=== PATIENT | female | born 1960 | race Caucasian/White ===

== ENCOUNTER 2017-09-09 12:51 | Observation (INO) | payer OTHER, MEDICARE ==
[2017-09-09 13:55] LABS: #Lymphocytes 0.5 thou/uL (1.20-3.40); #Monocytes 0.1 thou/uL (0.11-0.59); #Neutrophils 3.5 thou/uL (1.40-6.50); %Eosinophils 0.2 % (0.0-10.0); %Lymphocytes 11.5 % (21.0-51.0); %Monocytes 1.6 % (0.0-10.0); %Neutrophils 86.8 % (42.0-75.0); Mean Corpuscular HGB CONC 33.6 g/dL (32.0-36.0); Mean Corpuscular Hemoglobin 31.5 pg (27.0-31.0); Mean Corpuscular Volume 93.6 fl (81.0-99.0); Mean Platelet Volume 7.9 fL (7.4-10.4); Platelet Count 179 thou/uL (130-400); RBC Distribution Width 11.9 % (11.5-14.5); Red Blood Cell (RBC) Count 4.12 mill/uL (4.20-5.40)
[2017-09-09 14:00] LABS: INR-International Normal Ratio 1.1; PTT 29.7 SEC (22.9-36.1)
--- NOTE | 2017-09-09 14:14 | CT ---
HEAD CT WITHOUT CONTRAST: Date: 09-09-17 Comparison: 10-28-14 History: Dehydration, nausea, and syncope. Technique: Serial axial CT imaging at 5 mm intervals from vertex through skull base without contrast. FINDINGS: Imaged paranasal sinuses and mastoid air cells are well aerated. There is no displaced calvarial frac ture, intracranial hemorrhage, midline shift or mass effect. There is atherosclerotic calcification o f the cavernous carotid arteries. IMPRESSION: No acute findings. POS: [facility]
[2017-09-09 14:17] LABS: ALT (SGPT) 39 U/L (8-55); AST (SGOT) 40 U/L (5-34); Albumin 4.3 g/dL (3.5-5.0); Alkaline Phosphatase 72 U/L (40-150); Anion Gap 9 mmol/L (10-20); BUN (Urea Nitrogen) 9 mg/dL (9.8-20.1); Bilirubin, Total 0.3 mg/dL (0.2-1.2); CRP (Inflammatory) Less than 0.50 mg/dL (= or < 0.5); Calc. Creatinine Clearance 0 mL/min (70-130); Calcium 9.3 mg/dL (7.8-10.44); Carbon Dioxide 31 mmol/L (22-29); Chloride 103 mmol/L (98-107); Estimated GFR-MDRD 78; Globulin 2.9 g/dL (2.4-3.5); Glucose 161 mg/dL (70-105); Potassium 4.3 mmol/L (3.5-5.1); Protein, Total 7.2 g/dL (6.0-8.3); Sodium 139 mmol/L (136-145)
[2017-09-09 14:23] LABS: Troponin I Less than 0.010 ng/mL (< 0.028)
[2017-09-09] MEDS ORDERED: Loratadine 10 MG TAB PO PRN (15:13)
[2017-09-09] MEDS ORDERED: Nitroglycerin 0.4 MG TAB (25 Tab Bottle) SL PRN (15:13)
[2017-09-09] MEDS ORDERED: hydrALAZINE 20 MG/ML VIAL SLOW IVP PRN (15:13)
[2017-09-09] MEDS ORDERED: Ondansetron HCl/PF 4 MG/2 ML Vial IVP PRN (15:13)
[2017-09-09] MEDS ORDERED: cloNIDine 0.1 MG TAB PO PRN (15:13)
[2017-09-09] MEDS ORDERED: Diabetic Tussin 200 MG/10 ML UDCUP PO PRN (15:13)
[2017-09-09] MEDS ORDERED: Calcium Carbonate 500 MG ChewTAB PO PRN (15:13)
[2017-09-09] MEDS ORDERED: Bisacodyl 5 MG TAB PO PRN ×2 (15:13)
[2017-09-09] MEDS ORDERED: Mag-Al 1200 mg/1200 mg/30 ML UDCUP PO PRN (15:13)
[2017-09-09] MEDS ORDERED: Acetaminophen 325 MG TAB PO PRN (15:13)
[2017-09-09] MEDS ORDERED: Senokot 8.6 MG TAB PO PRN ×2 (15:13)
[2017-09-09] MEDS ORDERED: Benzonatate 100 MG CAP PO PRN (15:13)
[2017-09-09] MEDS ORDERED: Iopamidol 370 76% 50 ML VIAL FS ONE (15:14)
[2017-09-09] MEDS ORDERED: Iopamidol 370 76% 100 ML VIAL ONE (15:14)
[2017-09-09] MEDS ORDERED: Ketorolac Tromethamine 30 MG/ML VIAL ONE (15:57)
[2017-09-09] MEDS ORDERED: Promethazine HCl 25 MG/ML VIAL ONE (16:04)
[2017-09-09] MEDS ORDERED: Acetaminophen 500 MG TAB ONE (17:10)
[2017-09-09 17:12] LABS: Troponin I Less than 0.010 ng/mL (< 0.028)
[2017-09-09 18:31] LABS: Bilirubin Negative (Negative); Blood, Urine Small (Negative); Clarity CLEAR (Clear); Glucose, Urine (Dipstick) Negative (Negative); Leukocyte Negative (Negative); Nitrite Negative (Negative); Protein, Urine (Dipstick) Negative (Neg-Trace); Specific Gravity, Urine 1.007 (1.002-1.036); Urobilinogen 0.2 mg/dL (0.2-1.0); pH, Urine 7.5 (5.0-9.0)
[2017-09-09 18:33] LABS: Bacteria/HPF None Seen HPF (None Seen); Hyaline Casts/LPF 0-3 HYALINE CAST LPF (0-3 Hyaline); Squamous Epithelial None Seen HPF (0-3); WBC/HPF None Seen HPF (0-3)
[2017-09-09] MEDS: Dextrose 5 %-0.45 % NaCl 1,000 ML IV SCH (20:09)
--- NOTE | 2017-09-09 20:13 | CT ---
CT OF THE CHEST WITH CONTRAST CT OF THE ABDOMEN AND PELVIS WITH CONTRAST 09/09/17 COMPARISON: CT of the abdomen/pelvis 03/03/15. HISTORY: Abdominal pain and weight loss. TECHNIQUE: 1. Multiple contiguous axial images were obtained in a CT of the chest with contrast. Coronal re formats were performed. 2. Multiple contiguous axial images were obtained in a CT of the abdomen and pelvis with contras t. PO contrast was administered. Coronal reformats were performed. FINDINGS: CT CHEST: The heart is normal in size without focal cardiac abnormality. No hilar or mediastinal lymphadenopath y are seen. No focal infiltrates are seen in the lungs. No suspicious pulmonary nodules are seen. No pneumothorax or pleural effusion are seen. Hardware is seen in the cervical spine. The bones of the thorax show no acute abnormality. The chest wall soft tissues are unremarkable. CT ABDOMEN/PELVIS: The gallbladder has been removed. There is mild enlargement of the common bile duct and central intra hepatic biliary tree which is likely a reservoir effect from prior cholecystectomy. This is stable co mpared to the prior examination. No focal liver lesion is seen. The kidneys, adrenal glands, spleen, and pancreas are unremarkable. No free air, free fluid, or stranding changes are seen in the abdomen or pelvis. The uterus is not seen as the patient is likely status post hysterectomy. No focal abnormality of the large or small bowel are seen. No abdominal or pelvic lymphadenopathy are seen. Postsurgical changes are seen in the stomach. IMPRESSION: 1. No evidence of acute intrathoracic abnormality. 2. No evidence of acute intra-abdominal/pelvic abnormality. POS: [facility]
[2017-09-09 20:44] LABS: Troponin I Less than 0.010 ng/mL (< 0.028)
[2017-09-09] MEDS ORDERED: Ketorolac Tromethamine 10 MG TAB PO PRN (21:06)
[2017-09-09 21:18] LABS: Folate (Folic Acid) 13.4 ng/mL (7.0-31.4)
[2017-09-09] MEDS: traMADol HCl 50 MG TAB PO PRN (21:41)
[2017-09-09] MEDS: Diazepam 5 MG TAB PO PRN (21:42)
[2017-09-09] MEDS ORDERED: Potassium Chloride 8 MEQ TAB PO SCH (21:45)
[2017-09-10] MEDS: Levothyroxine Sodium 75 MCG TAB PO SCH (05:21)
[2017-09-10 05:53] LABS: #Lymphocytes 2.5 thou/uL (1.20-3.40); #Monocytes 0.6 thou/uL (0.11-0.59); #Neutrophils 4.7 thou/uL (1.40-6.50); %Basophils 0.3 % (0.0-1.0); %Eosinophils 0.6 % (0.0-10.0); %Lymphocytes 31.8 % (21.0-51.0); %Monocytes 7.6 % (0.0-10.0); %Neutrophils 59.7 % (42.0-75.0); Hemoglobin 11.9 g/dL (12.0-16.0); Mean Corpuscular HGB CONC 33.3 g/dL (32.0-36.0); Mean Corpuscular Hemoglobin 31.2 pg (27.0-31.0); Mean Corpuscular Volume 93.7 fl (81.0-99.0); Mean Platelet Volume 7.9 fL (7.4-10.4); Platelet Count 174 thou/uL (130-400); Red Blood Cell (RBC) Count 3.81 mill/uL (4.20-5.40); White Blood Cell (WBC) Count 7.9 thou/uL (4.8-10.8)
[2017-09-10 06:13] LABS: Anion Gap 7 mmol/L (10-20); BUN (Urea Nitrogen) 14 mg/dL (9.8-20.1); Calc. Creatinine Clearance 91 mL/min (70-130); Calcium 8.9 mg/dL (7.8-10.44); Carbon Dioxide 29 mmol/L (22-29); Chloride 105 mmol/L (98-107); Estimated GFR-MDRD Greater than 90; Glucose 90 mg/dL (70-105); Sodium 137 mmol/L (136-145)
[2017-09-10] MEDS ORDERED: Dicyclomine 10 MG CAP PO PRN (08:39)
[2017-09-10] MEDS ORDERED: cycloSPORINE 0.05% Ophthalmic Droperette EA EYE PRN ×2 (08:39→08:58)
[2017-09-10] MEDS ORDERED: RIZATRIPTAN BENZOATE 5 MG PO PRN (08:39)
[2017-09-10] MEDS ORDERED: Non-Formulary Item 1 EACH (Eszopiclone [Lunesta] 3 MG) PO PRN (08:39)
[2017-09-10] MEDS ORDERED: Vitami E (Dl,Tocopheryl Acet) 400 UNITS CAP PO PRN (08:39)
[2017-09-10] MEDS ORDERED: SUMAtriptan Succinate 50 MG TAB PO PRN (08:58)
[2017-09-10] MEDS ORDERED: FLU VACC QS2017-18 36 mo. & older 0.5 ML SYRINGE IM ONE (09:00)
[2017-09-10] MEDS ORDERED: Non-Formulary Item 1 EACH (Biotin [Biotin] 1 MG) PO SCH (09:00)
[2017-09-10] MEDS ORDERED: Non-Formulary Item 1 EACH (Cholecalciferol (Vitamin D3) [Vitamin D3] 5,000 UNIT) PO SCH (09:00)
[2017-09-10] MEDS ORDERED: Non-Formulary Item 1 EACH (Multivitamin [Multivitamins] 1 CAP) PO SCH (09:00)
[2017-09-10] MEDS ORDERED: MOMETASONE FUROATE EA NARE SCH (09:00)
[2017-09-10] MEDS ORDERED: POTASSIUM GLUCONATE PO SCH (09:00)
--- NOTE | 2017-09-10 09:56 | HP ---
DATE OF ADMISSION: 09/09/2017 PRIMARY CARE PHYSICIAN: Dr. Nu Canseco. CHIEF COMPLAINT: Weight loss, abdominal pain, generalized weakness, dehydration, poor oral intake, d iarrhea, headache seeing lights, urinary frequency, and dysuria. HISTORY OF PRESENTING ILLNESS: Ms. Elias is a 57-year-old female with past medical history of Sjo gren's syndrome, history of Clostridium difficile colitis, panic disorder, hypothyroidism, history of bariatric Edwige-en-Y surgery, fibromyalgia, chronic fatigue, who presented to the emergency room at t he instruction of her ENT physician, Dr. Bennett. History is mainly obtained by the patient herself. Electronic medical records have been reviewed. She was last admitted to our facility last year when she was diagnosed and treated for C. diff. Ms. 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 She reports that she feels all of her symptoms as mentioned in the chief complaint: have been worsened since she was taking Plaquenil. She stopped taking this about 2 weeks ago, but did not have much improvement in her symptoms. Her symptoms are rather nonspecific and generalized including generalized weakness is being the main complaint. She also reports weight loss of over 30 pounds over the course of last 2 or 3 months. She describes dysphagia, odynophagia, abdominal pain, nausea, vomiting, diarrhea, dys uria, frequency as well as headache and multitude headache, dizziness and seeing some sort of lights. She has sought medical care with Neurology, Dr. Maynard as an outpatient and today she was in the [facility] clinic to see Dr. Bennett, who thought that she would benefit from inpatient evaluation for these c omplex combination of symptoms. Upon presentation to the ER, she is hemodynamically stable. Her workup done in the emergency room in cluding a CT scan of the head as well as laboratory examination, chest x-ray, and EKG are all unremar kable. She is now being admitted as observation status for further evaluation. She has seen Dr. Chong in the past and has EGD, colonoscopy almost a decade ago after her surgery. It is important to note that the patient takes a multitude of [id number] supplements including something called SeroVital, which is growth hormone as well as something called , among others. PAST MEDICAL HISTORY: As outlined in the HPI. PAST SURGICAL HISTORY: 1. Edwige-en-Y gastrectomy for bariatric surgery. 2. EGD and colonoscopy. 3. Cholecystectomy. 4. Tummy tuck. 5. Appendectomy. 6. Neck surgery. 7. Hysterectomy. 8. Breast biopsy. 9. Sinus surgery. 10. Right-hand surgery. 11. Left-shoulder surgery. FAMILY HISTORY: Significant for throat cancer, renal cancer in her father, hypertension, CVA in her mother, breast cancer in sister. SOCIAL HISTORY: She is with 3 children. No history of drug, tobacco, or alcohol abuse. PSYCHIATRIC HISTORY: Anxiety and depression. ALLERGIES: Include CODEINE, DEMEROL, LATEX, MEPERIDINE, MORPHINE, PLASTIC TAPE, and SULFONAMIDE. CURRENT MEDICATIONS: Synthroid 75 mcg daily, meclizine 25 mg as needed, lidocaine viscous as needed, Evoxac 30 mg t.i.d., diazepam 2.5 mg as needed, azelastine nasal spray. REVIEW OF SYSTEMS: The patient has multiple positive review of system as mentioned above. PHYSICAL EXAMINATION: VITAL SIGNS: Blood pressure 162/101, pulse of 79, respirations 18, saturating 100% on room air, temp erature 97.6, weight 57 kilograms. GENERAL: No acute distress, awake, alert, and oriented x3. She, however, looks very pale and tired. HEENT: Mucous membrane is somewhat dry. No oropharyngeal exudate or erythema. Head is normocephali c, atraumatic. Pupils equal, reactive to light and accommodation. Extraocular movements are intact. She does appear to have some muscle wasting. NECK: Supple without any lymphadenopathy, JVD or bruit. CHEST: Clear to auscultation without any wheezing, rales or rhonchi. CARDIOVASCULAR: Rate and rhythm is regular without any murmur, rubs or gallops. ABDOMEN: Soft, nontender, nondistended, positive bowel sounds. EXTREMITIES: Free of any cyanosis, clubbing, or edema. NEUROLOGIC: Nonfocal. SKIN: Free of any rashes or bruises. I feel warm and dry to touch. PSYCHIATRIC: Flat affect. LABORATORY DATA: CBC is unremarkable. Hemoglobin 13, WBC is 4, neutrophils 86%, platelet count 179. Differential within normal limit. PT, PTT, INR normal. Serum chemistry shows bicarbonate 31, BUN low at 9, creatinine 0.76. Her total serum protein is 7.2, albumin 4.3. TSH normal. Cardiac enzyme s normal. Lipase normal. Lactic acid normal. Blood sugar 161. Urine analysis shows trace blood. CT scan of the brain by my review has no evidence to suggest any acute abnormality. A 12-lead EKG is reviewed by myself and has normal sinus rhythm without any acute ST or T-wave change s. IMPRESSION AND PLAN: 1. Generalized weakness, weight loss and abdominal pain. The patient's symptoms span multiple organ systems and it is unclear what is causing most of her symptoms. At this time, most of her symptoms; however, seem to be gastrointestinal. Her lab work is within normal limits. Her vital signs are no rmal. We will admit her under observation status and will get a CT scan of the chest, abdomen, and p shiloh to rule out any malignancies in light of significant weight loss. We will also request consult ation with Gastroenterology in the morning. Had high protein diet and consulted dietitian. Check B1 2, folic acid, iron, as well as thiamine levels. Continue D5 half normal saline for mild dehydration at this time. 2. Headache and dizziness. We will consult Dr. Maynard who has seen the patient in the outpatient s etting. 3. History of Sjogren's disease. Continue her home medication of Evoxac. 4. Hypothyroidism. We will continue her Synthroid 75 mcg daily. TSH checked and was within normal limits. 5. Anxiety and depression. Continue diazepam as needed. 6. Code status: FULL CODE. 7. Deep venous thrombosis and gastrointestinal prophylaxis. DISPOSITION: Ms. Elias is currently being admitted to the hospital for problems as mentioned abov e. She is hemodynamically stable. Estimated length of stay is less than two midnights at this time. Further management will depend upon her clinical course.
[2017-09-10] MEDS ORDERED: Zolpidem Tartrate 5 MG TAB PO PRN (10:11)
[2017-09-10] MEDS: Ondansetron HCl/PF 4 MG/2 ML Vial IVP PRN (10:20)
[2017-09-10] MEDS: Ferrous Sulfate 325 MG TAB PO SCH (10:24)
[2017-09-10] MEDS: Potassium Chloride 8 MEQ TAB PO SCH (10:24)
[2017-09-10] MEDS: Multivit, Therapeutic 1 TAB PO SCH (10:24)
[2017-09-10] MEDS: Fluticasone Propionate Nasal Spray 16 gm Bottle NASAL SCH (10:25)
[2017-09-10] MEDS: Dextrose 5 %-0.45 % NaCl 1,000 ML IV SCH ×2 (10:28→22:51)
[2017-09-10] MEDS: Enoxaparin Sodium 40 MG/0.4 ML SYRINGE SC SCH (10:28)
[2017-09-10] MEDS ORDERED: Diazepam 5 MG TAB PO PRN (13:13)
[2017-09-10 14:54] VITALS: BMI 21.2
--- NOTE | 2017-09-10 15:59 | CON ---
DATE OF CONSULTATION: 09/10/2017 GI INPATIENT CONSULTATION NOTE REQUESTING PHYSICIAN: Dr. Garcia. REASON FOR CONSULTATION: Nausea and abdominal pain. HISTORY OF PRESENT ILLNESS: Carol Elias is a 57-year-old woman who has been previously seen by my GI colleague, Dr. Kushal Chong. She has a significant past abdominal surgical history inclu ding Edwige-en-Y gastric bypass in 2002, cholecystectomy, appendectomy, hysterectomy, and also abdomino plasty. Of note, she has a history significant for C. difficile infection back in 2017. She carries diagnoses of fibromyalgia and chronic fatigue. She takes a lot of supplements. She is also being t reated for Sjogren syndrome evidently with associated arthritis. The patient relates that a couple o f months ago she was started on Plaquenil. Several weeks later, which was about 1 month ago, she sta rted having severe stabbing pain in the epigastrium. This waxes and wanes, but is reliably triggered by any food or drink pretty much immediately after eating. Because of this, her oral intake has dec lined and she reports of about a 30 pound weight loss over the past 1-2 months. There has been const ant nausea and she has had several episodes of nonbloody emesis. Her bowel movements have not really changed through this time. Stools are chronically loose, but just once or twice per day with no ble eding noted. She does report some dysphagia. She says this has been going on for a long time and is nonprogressive. She will occasionally feel as if solid food hangs up at the base of the neck and sh e will just have to wait for that sensation to resolve. She has not had any recent antibiotics and s he denies nonsteroidal anti-inflammatory drug use. It does not appear she is on any chronic acid sup pression. Upon presentation, she does have a mild anemia of hemoglobin 11.9, but otherwise labs are essentially unremarkable including LFTs, lipase, troponins and TSH. CT of the chest, abdomen, and pe lvis really showed only postoperative changes, but no acute processes. REVIEW OF SYSTEMS: Full review of systems including constitutional, head, eyes, ears, nose, throat, GI, , cardiovascular, respiratory, musculoskeletal, and neurologic systems is negative except as no alex in the HPI. PAST MEDICAL HISTORY: Appendectomy, cholecystectomy, Edwige-en-Y gastric bypass in 2002, hysterectomy, fibromyalgia, chronic fatigue, clostridium difficile infection in 2006, and Sjogren's syndrome. PAST SURGICAL HISTORY: Sinus surgery, right hand surgery, left shoulder surgery, abdominoplasty, hardy ic disorder, hypothyroidism. FAMILY HISTORY: Significant for throat cancer, renal cancer in her father, breast cancer in a sister . SOCIAL HISTORY: She is with 3 children. No smoking, alcohol, or drug use. ALLERGIES: CODEINE, DEMEROL, LATEX, MORPHINE, PLASTIC TAPE, and SULFONAMIDES. OUTPATIENT MEDICATIONS: Levothyroxine, biotin, potassium gluconate, Nexium 20 mg daily, dicyclomine p.r.n., Valium, vitamin D3, ferrous sulfate 325 mg daily, Lunesta, estradiol, multivitamin daily, Armando onex, Toradol, Maxalt, Restasis, and tramadol. PHYSICAL EXAMINATION: VITAL SIGNS: Temperature 98.4, pulse 80, blood pressure 132/68, 96% oxygen saturation on room air. GENERAL: A 57-year-old woman sitting up in bed comfortably in no acute distress. MENTAL: She is alert and oriented. She can give a detailed coherent history. Her affect is depress ed. SKIN: No jaundice, no rash visible or palpable. EYES: No scleral icterus. Extraocular movements intact. ENT: Mucous membranes moist, no oral lesions. LYMPH: No submandibular or supraclavicular lymphadenopathy. THYROID: Nontender to palpation. HEART: Regular rate and rhythm. LUNGS: Clear to auscultation bilaterally. ABDOMEN: Bowel sounds present, soft, tender to palpation in the epigastrium, but no guarding, reboun d tenderness. No masses or organomegaly appreciated. EXTREMITIES: No peripheral edema. VESSELS: Radial pulses 2+ bilaterally. NEUROLOGICAL: Cranial nerves II-XII intact bilaterally. No focal deficits. LABORATORY DATA: WBC 7.9, hemoglobin 11.9, platelets 174, MCV 93.7, BUN 14, creatinine 0.63, INR 1.1 , lipase 38, TSH 0.64, ESR 11. Troponin negative. LFTs all normal with total bilirubin 0.3, alkalin e phosphatase 72, AST 40, ALT 39, albumin 4.3. IMAGING STUDIES: CT of the head showed no acute processes. CT of the chest, abdomen, and pelvis ly wed postoperative changes of cholecystectomy, hysterectomy, and gastric surgery, but no acute process es, no bowel abnormalities. ASSESSMENT AND PLAN: 1. Epigastric pain, severe, postprandial. 2. Nausea. 3. Dysphagia, chronic. 4. History of Edwige-en-Y gastric bypass. 5. Abnormal weight loss, 30 pounds in the past couple of months. It has been about 7 years since e patient's last upper endoscopy, it was normal at that time. It has been about 10 years since her l ast colonoscopy which was normal in 2007. We discussed multiple potential etiologies for her symptom s, but also her lab and imaging workup so far has been reassuringly negative. At this point, further investigation is warranted with esophagogastroduodenoscopy and colonoscopy. Consider peptic ulcer d isease or anastomotic ulcer, obviously need to rule out occult malignancy. We will plan for esophago gastroduodenoscopy and colonoscopy tomorrow after bowel prep this evening. The patient understands a nd desires to proceed. Thank you for the consultation. Please call with questions or concerns.
[2017-09-10] MEDS ORDERED: GoLYTELY 4,000 ml Bottle PO SCH (16:00)
[2017-09-10] MEDS ORDERED: Diazepam 5 MG TAB PO SCH (18:45)
--- NOTE | 2017-09-10 20:14 | CON ---
DATE OF CONSULTATION: 09/10/2017 REFERRING PROVIDER: Dr. Jackie Garcia. REASON FOR CONSULTATION: Intractable headaches. HISTORY OF PRESENT ILLNESS: Ms. Elias is a pleasant 57-year-old female who has been con sulted for evaluation of intractable headaches. Patient reports that she has history of migraines fo r several years. She has seen Dr. Cash Maynard as an outpatient for her migraines. She states that over the past 2 weeks, she has been having headaches on a daily basis. Headaches are located in the cap-like distribution and tends to radiate to the front into both eyes. These headaches are sharp in quality. They are on average at 3-4/10 in intensity. They tend to go up to 5-6/10 in intensity fito t is when she usually takes her tramadol to get rid of the headache. This may decrease in intensity down to 2 or 3, but it never completely goes away. These headaches are on daily basis. She has a bl urry vision along with the shadows and floaters, which are blue in nature on the periphery of the lef t eye. She also has nausea, dizziness with headaches. She presented to the hospital with a complain t of generalized weakness of the stomach, poor oral intake and diarrhea. She has tried Topamax, Depa kote, propranolol, amitriptyline, and other preventive therapies for migraines in the past without an y relief of her headaches. She also could not tolerate them and says she had discontinued all of the m. She states that she was supposed to undergo Botox with Dr. Maynard; however, she never followed u p. PAST MEDICAL HISTORY: Significant for Sjogren syndrome, C. diff colitis, panic disorder, hypothyroid ism, fibromyalgia, chronic fatigue syndrome. PAST SURGICAL HISTORY: Significant for bariatric surgery, EGD, and colonoscopy, cholecystectomy, becky endectomy, neck surgery, hysterectomy, breast biopsy, sinus surgery, right-hand surgery, and left ly ulder surgery. SOCIAL HISTORY: She is and has 3 children. She denies smoking, alcohol use, or illicit drug use. FAMILY HISTORY: Significant for throat cancer, renal cancer in her father, hypertension, stroke in h er mother, and breast cancer in her sister. CURRENT MEDICATIONS: Please review MAR. ALLERGIES: Include CODEINE, DEMEROL, LATEX, MEPERIDINE, MORPHINE, PLASTIC TAPE, and SULFONAMIDE. PSYCHIATRIC HISTORY: Includes anxiety and depression. REVIEW OF SYSTEMS: As mentioned in the HPI, is negative. PHYSICAL EXAMINATION: VITAL SIGNS: Blood pressure of 114/66, pulse of 75, temperature of 98.2, respirations of 18, O2 sats of 96% on room air. GENERAL: Well-developed, well-nourished female in no apparent distress. RESPIRATORY: Clear to auscultation bilaterally. CARDIOVASCULAR: Regular rate and rhythm. NEUROLOGICAL: Mental status: Patient is awake, alert, oriented x3. Speech and language: Fluent sp eech. Cranial nerves: Pupils are 3 mm and reactive. Visual sánchez are intact. Extraocular muscles are intact. No nystagmus is noted. Face is symmetric. Tongue and uvula are midline. Motor exam s howed normal tone and bulk with 5/5 strength in both upper and lower extremities. Sensory: Sensatio n is intact and symmetric. Deep tendon reflexes 2+ of flexion with both upper and lower extremities. Babinski: Plantar responses flexion bilaterally. Coordination intact to [id number] and fi nger tapping bilaterally. LABORATORY DATA: Reviewed, which included CBC, CMP, TSH, B12, folate, urinalysis, which is significa nt for hemoglobin 11.9, hematocrit of 35.6. AST of 40, otherwise unremarkable. IMAGING STUDIES: CT head without contrast was reviewed, which showed no acute intracranial abnormali ty. IMPRESSION: Intractable migraines, stress, and anxiety. Ms. Elias is a pleasant 57-year-old Cauc female presented with increasing episodes of headaches. Based on the description, these are li bridgett intractable migraines, had long discussion with the patient and explained that since she has bee n having headaches on a daily basis, she needs to be started on preventive therapy. She has tried mu ltiple preventive therapies in the past without any relief in significant noticeable side effects. A t this time, I will recommend continuing current medical management. She will follow up with Dr. Mariola jerez as outpatient and possibly enroll in Botox therapy. We discussed about starting a preventive th erapy; however, she is reluctant to start as she has tried them in the past and she is worried about the side effects. There is no further neurological workup needed from my standpoint. Thank you for consultation.
--- NOTE | 2017-09-10 21:56 | PDOC.PN ---
- Subjective Encounter Start Date: 09/10/17 Encounter Start Time: 21:55 Subjective: FEELS BETTER BUT VERY EMOTIONAL.CRYING ON AND OFF - Objective MAR Reviewed: Yes Vital Signs & Weight: Vital Signs (12 hours) Temp Pulse Resp BP Pulse Ox 09/10/17 18:33 97.4 F L 70 16 135/75 99 09/10/17 15:35 98.2 F 75 18 114/66 96 09/10/17 12:06 98.4 F 80 16 132/68 96 Weight Admit Weight 134 lb Weight 131 lb 11.2 oz I&O: 09/09/17 09/10/17 09/11/17 06:59 06:59 06:59 Intake Total 1892 1650 Output Total 3050 2700 Balance -1158 -1050 Result Diagrams: 09/10/17 05:28 09/10/17 05:28 Additional Labs: Microbiology 03/02/15 12:16 Urine voided Urine Culture - Preliminary NO GROWTH AT 24 HOURS 03/02/15 10:02 Venous blood - Right Hand Blood Culture - Preliminary Specimen has been received and culture in progress. No Growth to date. 03/02/15 09:59 Venous blood - Right Arm Blood Culture - Preliminary Specimen has been received and culture in progress. No Growth to date. Phys Exam - Physical Examination tearful HEENT: PERRLA, moist MMs, sclera anicteric, oral pharynx no lesions Neck: no nodes, no JVD, supple, full ROM Respiratory: no wheezing, no rales, no rhonchi Cardiovascular: RRR, no significant murmur Gastrointestinal: soft, non-tender, no distention, positive bowel sounds Musculoskeletal: no edema, pulses present Neurological: non-focal, normal sensation, moves all 4 limbs Psychiatric: normal affect, A&O x 3 Skin: no rash Dx/Plan (1) General weakness Code(s): R53.1 - WEAKNESS Status: Acute (2) Abdominal pain Code(s): R10.9 - UNSPECIFIED ABDOMINAL PAIN Status: Acute (3) Anxiety Code(s): F41.9 - ANXIETY DISORDER, UNSPECIFIED Status: Acute (4) Sjogrens syndrome Code(s): M35.00 - SICCA SYNDROME, UNSPECIFIED Status: Acute (5) Protein calorie malnutrition Code(s): E46 - UNSPECIFIED PROTEIN-CALORIE MALNUTRITION Status: Chronic Qualifiers: Protein-calorie malnutrition severity: severe Qualified Code(s): E43 - Unspecified severe protein-calorie malnutrition - Plan DVT proph w/SCDs work up negative so far.sina psychosomatic in nature.discussed w pt & jim -: CT chest /A/P without any acute changes.awaiting thiamine levels -: cont NS.add OT,PT.HH -: Appreciate GI/Neurology input.EGD/Colonoscopy in am -: HD stable.increase prn valium per pt reuqest for ac worsening of anxiety * . Review of Systems - Review of Systems Constitutional: weakness, malaise. negative: fever, chills, sweats, other Cardiovascular: negative: chest pain, palpitations, orthopnea, paroxysmal nocturnal dyspnea, edema, light headedness, other Gastrointestinal: Nausea, Abdominal Pain, Diarrhea. negative: Vomiting, Constipation, Melena, Hematochezia, Other Genitourinary: negative: Dysuria, Frequency, Incontinence, Hematuria, Retention , Other Musculoskeletal: negative: Neck Pain, Shoulder Pain, Arm Pain, Back Pain, Hand Pain, Leg Pain, Foot Pain, Other Skin: negative: Rash, Lesions, Tadeo, Bruising, Other Neurological: negative: Weakness, Numbness, Incoordination, Change in Speech, Confusion, Seizures, Other - Medications/Allergies Allergies/Adverse Reactions: Allergies Allergy/AdvReac Type Severity Reaction Status Date / Time codeine [Codeine] Allergy Verified 02/22/15 08:43 meperidine Allergy Verified 02/22/15 08:43 morphine Allergy Verified 02/22/15 08:43 Sulfa (Sulfonamide Allergy Verified 02/22/15 08:43 Antibiotics) plastic tape Allergy Uncoded 02/22/15 08:43 Medications: Current Medications Acetaminophen (Tylenol) 650 mg PO Q4H PRN PRN Reason: Headache/Fever or Pain Al Hydroxide/Mg Hydroxide (Maalox) 30 ml PO Q6H PRN PRN Reason: Heartburn or Indigestion Last Admin: 09/10/17 16:26 Dose: 30 ml Benzonatate (Tessalon) 100 mg PO Q4H PRN PRN Reason: Cough Bisacodyl (Dulcolax) 10 mg PO DAILYPRN PRN PRN Reason: Constipation Calcium Carbonate (Tums) 1,000 mg PO Q4H PRN PRN Reason: Heartburn or Indigestion Cholecalciferol (Vitamin D3) 5,000 units PO DAILY [facility] Last Admin: 09/10/17 10:25 Dose: 5,000 units Clonidine (Catapres) 0.1 mg PO Q4H PRN PRN Reason: Systolic BP > 160 Cyclosporine (Restasis) 0 ml EA EYE PRN PRN PRN Reason: Dry Eyes Diazepam (Valium) 2.5 mg PO DAILYPRN PRN PRN Reason: Anxiety Last Admin: 09/09/17 21:42 Dose: 2.5 mg Diazepam (Valium) 2.5 mg PO TID PRN PRN Reason: Anxiety/Agitation Last Admin: 09/10/17 14:12 Dose: 2.5 mg Dicyclomine HCl (Bentyl) 10 mg PO QID PRN PRN Reason: ABDOMINAL CRAMPS/DISCOMFORT Enoxaparin Sodium (Lovenox) 40 mg SC 0900 [facility] Last Admin: 09/10/17 10:28 Dose: 40 mg Ferrous Sulfate (Feosol) 325 mg PO DAILY [facility] Last Admin: 09/10/17 10:24 Dose: 325 mg Fluticasone Propionate (Flonase Nasal [place]) 0 gm NASAL DAILY [facility] Last Admin: 09/10/17 10:25 Dose: 1 spray Guaifenesin (Robitussin Sf) 200 mg PO Q4H PRN PRN Reason: Cough Hydralazine HCl (Apresoline) 10 mg SLOW IVP Q4H PRN PRN Reason: Systolic BP > 170 Dextrose/Sodium Chloride (D5 1/2 Ns) 1,000 mls @ 75 mls/hr IV .[id number] [facility] Last Admin: 09/10/17 10:28 Dose: 1,000 mls Ketorolac Tromethamine (Toradol) 10 mg PO Q6H PRN PRN Reason: Pain Stop: 09/14/17 21:07 Last Admin: 09/10/17 10:23 Dose: 10 mg Levothyroxine Sodium (Synthroid) 75 mcg PO 0600 [facility] Last Admin: 09/10/17 05:21 Dose: 75 mcg Loratadine (Claritin) 10 mg PO DAILYPRN PRN PRN Reason: Sinus Symptoms Multivitamins (Theragran) 1 tab PO DAILY [facility] Last Admin: 09/10/17 10:24 Dose: 1 tab Nitroglycerin (Nitrostat) 0.4 mg SL Q5MIN PRN PRN Reason: Chest Pain Ondansetron HCl (Zofran) 4 mg IVP Q6H PRN PRN Reason: Nausea/Vomiting Last Admin: 09/10/17 10:20 Dose: 4 mg Pantoprazole Sodium (Protonix) 40 mg PO DAILY [facility] Last Admin: 09/10/17 10:25 Dose: 40 mg [Biotin] 1 Mg 0 each PO DAILY [facility] Polyethylene Glycol/Electrolytes (Golytely) 4,000 ml PO 1600 [facility] Stop: 09/10/17 23:59 Last Admin: 09/10/17 16:17 Dose: 4,000 ml Potassium Chloride (Slow-K 8 Meq) 16 meq PO DAILY [facility] Last Admin: 09/10/17 10:24 Dose: 16 meq Senna (Senokot) 2 tab PO HSPRN PRN PRN Reason: Constipation Sodium Chloride (Flush - Normal Saline) 10 ml IVF Q12HR [facility] Last Admin: 09/10/17 20:47 Dose: Not Given Sodium Chloride (Flush - Normal Saline) 10 ml IVF PRN PRN PRN Reason: Saline Flush Sumatriptan Succinate (Imitrex) 50 mg PO ASDIR PRN PRN Reason: migraines Tramadol HCl (Ultram) 50 mg PO DAILYPRN PRN PRN Reason: Pain Last Admin: 09/09/17 21:41 Dose: 50 mg Vitamin E (Vitamin E) 400 units PO PRN PRN PRN Reason: Pain Zolpidem Tartrate (Ambien) 10 mg PO HS PRN PRN Reason: SLEEP
[2017-09-10] MEDS ORDERED: Venlafaxine HCl XR 150 MG CAP PO SCH (22:15)
[2017-09-11] MEDS: Ondansetron HCl/PF 4 MG/2 ML Vial IVP PRN ×2 (05:28→14:08)
[2017-09-11] MEDS: Levothyroxine Sodium 75 MCG TAB PO SCH (05:29)
[2017-09-11] MEDS ORDERED: Fleet Enema 133 ML BOT FS SCH (08:15)
[2017-09-11] MEDS ORDERED: Magnesium Citrate 300 ML BOT PO SCH (08:15)
[2017-09-11] MEDS: Dextrose 5 %-0.45 % NaCl 1,000 ML IV SCH (08:33)
[2017-09-11] MEDS: Fluticasone Propionate Nasal Spray 16 gm Bottle NASAL SCH (08:37)
[2017-09-11] MEDS: Potassium Chloride 8 MEQ TAB PO SCH (08:38)
[2017-09-11] MEDS: traMADol HCl 50 MG TAB PO PRN (08:39)
[2017-09-11] MEDS: Multivit, Therapeutic 1 TAB PO SCH (08:41)
[2017-09-11] MEDS: Ferrous Sulfate 325 MG TAB PO SCH (08:41)
[2017-09-11] MEDS: Enoxaparin Sodium 40 MG/0.4 ML SYRINGE SC SCH (08:41)
[2017-09-11] MEDS ORDERED: Venlafaxine HCl XR 150 MG CAP PO SCH (09:00)
--- NOTE | 2017-09-11 11:09 | PDOC.PN ---
- Subjective Encounter Start Date: 09/11/17 Encounter Start Time: 11:06 Ms. Elias was seen today in follow-up of generalized somatic complaints, including epigastric pain and headaches. - Objective MAR Reviewed: Yes Vital Signs & Weight: Vital Signs (12 hours) Temp Pulse Resp BP Pulse Ox 09/11/17 08:00 98.5 F 77 16 09/11/17 07:49 98.5 F 77 16 120/58 L 95 09/11/17 04:04 98.6 F 72 15 104/63 96 09/10/17 23:58 97.8 F 66 22 H 138/77 97 Weight Admit Weight 134 lb Weight 134 lb 8 oz I&O: 09/10/17 09/11/17 09/12/17 06:59 06:59 06:59 Intake Total 1892 6896 Output Total 3050 4600 Balance -1158 2296 Result Diagrams: 09/10/17 05:28 09/10/17 05:28 Phys Exam - Physical Examination HEENT: PERRLA Respiratory: no wheezing, no rales, no rhonchi, clear to auscultation bilateral Cardiovascular: RRR, no significant murmur, no rub Gastrointestinal: soft + epigastric tenderness, no rebound or guarding Musculoskeletal: no edema Dx/Plan (1) Migraine headache Code(s): G43.909 - MIGRAINE, UNSP, NOT INTRACTABLE, WITHOUT STATUS MIGRAINOSUS Status: Acute (2) Abnormal weight loss Code(s): R63.4 - ABNORMAL WEIGHT LOSS Status: Acute (3) Abdominal pain Code(s): R10.9 - UNSPECIFIED ABDOMINAL PAIN Status: Acute (4) General weakness Code(s): R53.1 - WEAKNESS Status: Acute (5) Sjogrens syndrome Code(s): M35.00 - SICCA SYNDROME, UNSPECIFIED Status: Acute (6) Hypothyroidism Code(s): E03.9 - HYPOTHYROIDISM, UNSPECIFIED Status: Acute - Plan * Epigastric pain- plan is for EGD and Colonoscopy today * Headache- continue her current treatment for migraines * Sjorgren's- with sicca syndrome, and arthritis- currently stable * Hypothyroidism- clinically euthyroid
[2017-09-11] MEDS ORDERED: Propofol 200 MG/20 ML VIAL ONE (13:55)
[2017-09-11] MEDS: Diazepam 5 MG TAB PO PRN (14:08)
[2017-09-11 15:48] VITALS: BP 108/57; TEMP 98.5
--- NOTE | 2017-09-12 03:16 | DIS ---
DATE OF ADMISSION: 09/09/2017 DATE OF DISCHARGE: 09/11/2017 PRIMARY CARE PHYSICIAN: Nu Canseco M.D. DISCHARGE DISPOSITION: Home. PRIMARY DISCHARGE DIAGNOSES: 1. Abdominal pain and weight loss, unknown etiology. 2. Chronic migraine headaches. 3. Sjogren's disease with reported Sicca syndrome and arthritis. 4. Hypothyroidism. 5. History of panic disorder. 6. Abnormal weight loss. DISCHARGE MEDICATIONS: Imitrex 50 mg as needed, vitamin E (tocopherol) 400 units daily, venlafaxine extended release 300 mg daily, tramadol 50 mg daily, Restasis eyedrops p.r.n., potassium gluconate 12 00 mg daily, multivitamin once a day, Nasonex nasal spray daily, levothyroxine 75 mcg daily, ketorola c 10 mg q.6 hours as needed, iron sulfate 325 mg daily, Lunesta 3 mg at bedtime as needed, estradiol vaginal, Nexium 20 mg daily, Bentyl 10 mg q.i.d., Valium 2.5 mg daily, vitamin D3 of 5000 units twice a day, Biotin 1 mg daily. PROCEDURES DONE DURING ADMISSION: The patient had a CT scan of the brain in which there were no acut e findings. A CT scan of the abdomen and pelvis showing no evidence of any acute intrathoracic abnor mality or any acute intra-abdominal or pelvic abnormality. The patient also had an endoscopy and col onoscopy, which were essentially negative. ALLERGIES: The patient's allergies are to CODEINE, MEPERIDINE, MORPHINE, SULFA and PLASTIC TAPE. CONSULTANTS DURING ADMISSION: The patient was seen by Dr. Ball with Neurology as well as Dr. Jone tillman and Dr. Chong with Gastroenterology. HOSPITAL COURSE: Ms. Elias is a very pleasant 57-year-old female that presented to the emergency room with complaints of severe headache as well as abdominal pain and some weight loss. She was seen by Neurology during her hospital stay after having a CT scan done which was negative and it was felt that her headaches are most likely due to migraine headaches. The patient was offered long-term pro phylaxis, but she refused as she was concerned about the side effects of the medications. She theref ore will be continued on her usual dose of medications for acute migraine. She was also seen with re gards to her epigastric pain and weight loss. CT scan of the pelvis was essentially negative and she had an EGD and colonoscopy which were also unremarkable. Dr. Chong did draw lab work to check for other potential problems such as celiac disease with antitransglutaminase antibody as well as checkin g her IgA levels. I also instructed her to abstain from the iron sulfate as this could be aggravatin g her symptoms and to follow up with him with the results as instructed and also with her primary car e physician in a few weeks.
--- NOTE | 2017-09-12 12:37 | OP ---
PROCEDURE: Esophagogastroduodenoscopy and colonoscopy. PREPROCEDURE DIAGNOSES: 1. Weight loss, some epigastric pain, some change in bowel function. 2. 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 3. History of fibromyalgia. POSTPROCEDURE DIAGNOSES: 1. Normal anatomy for Edwige-en-Y gastric bypass with normal gastrojejunal anastomosis and Edwige-en-Y a nastomosis. 2. Colon is tortuous and redundant, but normal with no polyps or masses. RECOMMENDATIONS: 1. Bowel regimen with MiraLax daily if constipation is an issue. 2. Appetite stimulant may be necessary. 3. It may be reasonable to consider some of her medications as a source of her symptoms. She felt l meme the Plaquenil may have had a significant effect on her appetite. 4. We would supplement with vitamins daily. 5. We would check her thiamine levels, which are pending. 6. Repeat colonoscopy for screening purposes in 10 years. ANESTHESIA: TIVA. PROCEDURE IN DETAIL: After the patient was informed the risks, benefits, possible complications of e ndoscopy including perforation, bleeding, reactions to medication and aspiration, informed consent wa s obtained. The patient brought to endoscopy suite where she was sedated in gradual fashion. Once s he was comfortable, a bite block was placed in incisural orifice. The endoscope was advanced through the esophagus, stomach, second and third portion of duodenum with good visualization of the mucosa. There were no masses or lesions in this area. The anatomy was consistent with previous Edwige-en-Y ga stric bypass. The gastric pouch appeared normal size, not distended. In the esophagus, there was no evidence of erosions, hernia or esophagitis. The gastrojejunal anastomosis was normal. Staple line s were intact without ulceration. The scope was able to be advanced down the limb to the anastomosis with the efferent limb from the jejunum, from the duodenum and the biliary tree and this was n ormal. There are no signs of obstruction. The scope was removed. The patient was turned in the room. A rectal exam was performed. The endoscope was advanced through anal canal through the colon to cecum, which was identified by ileocecal valve and appendiceal orifi ce. The colon was tortuous and redundant. We had to use external pressure to help manipulate the sc ope to the cecum. The prep was fair with some liquid stool material remaining, which had to be irrig ated away. The scope was slowly removed with good visualization of the mucosa. There were no masses , lesions or AV malformations. Retroflexed views in the rectum were normal. The scope was removed. The patient tolerated the procedure well with no complications.
== END 2017-09-11 18:02 | disposition home or self-care (01) ==
LOC: ERS 12:51 → 2SW 17:38
PROVIDERS: ADMIT Internal Medicine; ATTEND Internal Medicine
PROC: 0DJD8ZZ Inspection of Lower Intestinal Tract, Via Natural or Artificial Opening Endoscopic (ICD-10-PCS; principal; 2017-09-11)
PROC: 0DJ08ZZ Inspection of Upper Intestinal Tract, Via Natural or Artificial Opening Endoscopic (ICD-10-PCS; 2017-09-11)
DX: R19.4 Change in bowel habit (principal); R63.4 Abnormal weight loss; R10.13 Epigastric pain; M79.7 Fibromyalgia; G43.909 Migraine, unspecified, not intractable, without status migrainosus; M35.00 Sjogren syndrome, unspecified; M19.90 Unspecified osteoarthritis, unspecified site; E03.9 Hypothyroidism, unspecified; F41.0 Panic disorder [episodic paroxysmal anxiety]; R53.82 Chronic fatigue, unspecified; F41.9 Anxiety disorder, unspecified; F32.9 Major depressive disorder, single episode, unspecified; R13.10 Dysphagia, unspecified; Z79.890 Hormone replacement therapy; Z79.51 Long term (current) use of inhaled steroids; Z79.899 Other long term (current) drug therapy; Z91.040 Latex allergy status; Z88.5 Allergy status to narcotic agent; Z88.2 Allergy status to sulfonamides; Z91.048 Other nonmedicinal substance allergy status; Z90.49 Acquired absence of other specified parts of digestive tract; Z98.84 Bariatric surgery status; Z90.710 Acquired absence of both cervix and uterus; Z98.890 Other specified postprocedural states
CPT/HCPCS: 36415; 70450; 71260; 74177; 80048; 80053; 81003; 81015; 82553; 82607; 82746; 83003; 83516; 83605; 83690; 84425; 84443; 84484; 85025; 85610; 85652; 85730; 86140; 93005; 94760; 96361; 96365; 96372; 96375; 96376; A4216; G0378; J1650; J1885; J2405; J2550; J2704